=== PATIENT | male | born 1980 | race African-American/Black ===

== ENCOUNTER 2025-11-06 16:00 | Inpatient (IN) | payer OTHER ==
[~2025-11-06] VITALS: Ht 162.6 cm; Wt 75.0 kg
[2025-11-06 17:32] LABS: PLATELET COUNT (AUTO) 257 K/uL (150-450); RED BLOOD CELL COUNT(AUTO) 6.45 MIL/uL (4.50-5.90); RED CELL DISTRIBUTION WIDTH 14.5 % (11.5-14.5); WHITE BLOOD COUNT (AUTO) 8.3 K/uL (4.5-11.0)
[2025-11-06 17:41] LABS: CALCIUM, TOTAL 9.5 mg/dL (8.8-10.5); CREATININE 1.20 mg/dL (0.60-1.30); GLOMERULAR FILTR. RATE CALC > 60 mL/min (>60); GLUCOSE,RANDOM 105 mg/dL (70-110); SODIUM SERUM 137 mmol/L (136-145); UREA NITROGEN, BLOOD 16 mg/dL (7-18)
[2025-11-06 17:43] LABS: RBC MORPHOLOGY COMMENT NORMAL RBC MORPH
[2025-11-06 17:49] LABS: TROPONIN I-HIGH SENSITIVITY 6 ng/L (<76)
[2025-11-06] MEDS: ONDANSETRON HCL 4 MG/2 ML VIAL IVP ONE (18:14)
[2025-11-06] MEDS: KETOROLAC TROMETHAMINE 30 MG/ML VIAL IVP ONE (18:14)
[2025-11-06] MEDS: SODIUM CHLORIDE 0.9% 2,000 ML IV ONE (18:16)
[2025-11-06] MEDS ORDERED: IOHEXOL 350 MG/ML 100 ML VIAL ONE (19:14)
[2025-11-06] MEDS ORDERED: SODIUM CHLORIDE 0.9% 100 ML ONE (19:14)
[2025-11-06] MEDS: RINGERS SOLUTION,LACTATED 1,000 ML IV SCH (19:24)
[2025-11-06 19:27] LABS: APPEARANCE,URINE CLEAR (CLEAR); GLUCOSE, URINE (UA) NEGATIVE (NEGATIVE); LEUKOCYTE ESTERASE ,URINE NEGATIVE (NEGATIVE); NITRATE,URINE NEGATIVE (NEGATIVE); OCCULT BLOOD,URINE NEGATIVE (NEGATIVE); PH,URINE DRUG SCREEN 6.5 (5.0-8.0); SPECIFIC GRAVITIY, URINE 1.037 (1.003-1.030)
[2025-11-06 19:38] LABS: SQUAMOUS EPITHELIAL CELL,UR Rare /LPF (None Seen)
[2025-11-06 19:39] LABS: ALCOHOL, URINE DRUG SCREEN NEGATIVE (NEGATIVE); AMPHET/METH SCREEN,URINE NEGATIVE (NEGATIVE); BARBITURATE SCREEN, URINE NEGATIVE (NEGATIVE); CANNABINOID SCREEN,URINE NEGATIVE (NEGATIVE); COCAINE SCREEN,URINE NEGATIVE (NEGATIVE); METHADONE SCREEN, URINE NEGATIVE (NEGATIVE)
[2025-11-06] MEDS: DOCUSATE SODIUM 100 MG CAPSULE PO SCH (20:06)
[2025-11-06] MEDS: CefTRIAXone 1 GM/DEXTROSE 50 ML IV SCH (23:02)
[2025-11-06] MEDS ORDERED: DAPA10TA PO (23:24)
[2025-11-06] MEDS ORDERED: HYDR-4808 PO (23:24)
[2025-11-06] MEDS ORDERED: GABA-1181 PO (23:24)
[2025-11-06] MEDS ORDERED: ASPI-1450 PO (23:24)
[2025-11-06] MEDS ORDERED: SPIR-37 PO (23:24)
[2025-11-06] MEDS ORDERED: METO-325 PO (23:24)
[2025-11-06] MEDS ORDERED: ONDA2VIA4 IM (23:24)
[2025-11-06] MEDS ORDERED: MELA5TAB40 PO (23:24)
[2025-11-06] MEDS ORDERED: SACU1TAB7 PO (23:24)
[2025-11-06] MEDS ORDERED: BUME1TAB50 PO (23:24)
[2025-11-06] MEDS: HEPARIN SODIUM,PORCINE 5,000 UNITS/ML VIAL SQ SCH (23:52)
[2025-11-07 05:34] LABS: PLATELET COUNT (AUTO) 207 K/uL (150-450); RED BLOOD CELL COUNT(AUTO) 5.33 MIL/uL (4.50-5.90); RED CELL DISTRIBUTION WIDTH 14.5 % (11.5-14.5); WHITE BLOOD COUNT (AUTO) 7.7 K/uL (4.5-11.0)
[2025-11-07 05:39] LABS: CALCIUM, TOTAL 8.1 mg/dL (8.8-10.5); CREATININE 1.06 mg/dL (0.60-1.30); GLOMERULAR FILTR. RATE CALC > 60 mL/min (>60); GLUCOSE,RANDOM 114 mg/dL (70-110); SODIUM SERUM 140 mmol/L (136-145); UREA NITROGEN, BLOOD 15 mg/dL (7-18)
[2025-11-07 14:20] VITALS: BP 155/93; PULSE 64; RESP 20; TEMP 98.1; O2SAT 99
[2025-11-07] MEDS: SACUBITRIL/VALSARTAN 49-51 MG TABLET PO SCH (16:42)
[2025-11-07] MEDS: POTASSIUM CHLORIDE 10% 40 MEQ/30 ML LIQUID UDCUP PO ONE (16:42)
[2025-11-07] MEDS: METOPROLOL SUCCINATE 50 MG ER TABLET PO SCH (16:42)
[2025-11-07] MEDS: ASPIRIN 81 MG CHEWABLE TABLET PO SCH (16:43)
[2025-11-07] MEDS: SPIRONOLACTONE 25 MG TABLET PO SCH (16:44)
[2025-11-07 20:35] VITALS: BP 152/88; PULSE 60; RESP 18; TEMP 98.2; O2SAT 96
[2025-11-07] MEDS: MELATONIN 5 MG TABLET PO SCH (20:41)
[2025-11-07] MEDS: DAPAGLIFLOZIN PROPANEDIOL 5 MG TABLET PO SCH (20:41)
[2025-11-07] MEDS: GABAPENTIN 300 MG CAPSULE PO SCH (20:41)
[2025-11-07] MEDS ORDERED: SODIUM CHLORIDE 0.9% 500 ML IV ONE (23:24)
[2025-11-07] MEDS: SENNOSIDES 8.8 MG/5 ML SYRUP UDCUP PO ONE (23:40)
[2025-11-08 07:00] LABS: PLATELET COUNT (AUTO) 222 K/uL (150-450); RED BLOOD CELL COUNT(AUTO) 6.05 MIL/uL (4.50-5.90); RED CELL DISTRIBUTION WIDTH 14.2 % (11.5-14.5); WHITE BLOOD COUNT (AUTO) 4.4 K/uL (4.5-11.0)
[2025-11-08 07:18] LABS: CREATININE 0.79 mg/dL (0.60-1.30); GLUCOSE,RANDOM 89 mg/dL (70-110); SODIUM SERUM 140 mmol/L (136-145); UREA NITROGEN, BLOOD 11 mg/dL (7-18)
[2025-11-08 07:19] LABS: CALCIUM, TOTAL 8.6 mg/dL (8.8-10.5); GLOMERULAR FILTR. RATE CALC > 60 mL/min (>60)
[2025-11-08] MEDS: FUROSEMIDE 20 MG TABLET PO SCH (08:43)
[2025-11-08 09:13] VITALS: BP 156/93; PULSE 68; RESP 18; TEMP 98.2; O2SAT 100
[2025-11-08] MEDS: ISOSORBIDE MONONITRATE 30 MG ER TABLET PO SCH (11:46)
[2025-11-08] MEDS ORDERED: FURO20TA5 PO (15:59)
[2025-11-08] MEDS ORDERED: AMOX-457 PO (16:00)
[2025-11-08] MEDS ORDERED: AMLO-257 PO (16:01)
[2025-11-08 16:16] VITALS: BP 135/93; PULSE 58; RESP 18; TEMP 98.1; O2SAT 97
[2025-11-08] MEDS: ACETAMINOPHEN 500 MG TABLET PO ONE ×2 (16:34→21:51)
[2025-11-08] MEDS: ONDANSETRON HCL 4 MG/2 ML VIAL IVP PRN (17:59)
[2025-11-08 20:09] VITALS: BP 125/88; PULSE 58; RESP 18; TEMP 98.1; O2SAT 98
[2025-11-08] MEDS: SODIUM CHLORIDE 0.9% 500 ML IV ONE (21:51)
[2025-11-08] MEDS ORDERED: SODIUM CHLORIDE 0.9% 250 ML IV ONE (22:52)
[2025-11-09 04:54] VITALS: BP 136/88; PULSE 61; RESP 18; TEMP 97.7; O2SAT 96
[2025-11-09 08:27] VITALS: BP 140/88; PULSE 55; RESP 19; TEMP 97.5; O2SAT 95
[2025-11-09 20:00] VITALS: BP 159/101; PULSE 53; RESP 20; TEMP 98.1; O2SAT 97
== END 2025-11-10 00:36 | DRG 391 ==
LOC: EMS 16:00 → EDH 18:09 → 6S 11-07 03:03 → EDH 11-07 03:25 → 4S 11-07 14:05
PROVIDERS: ADMIT Internal Medicine; ATTEND Internal Medicine
DX: K52.9 Noninfective gastroenteritis and colitis, unspecified (principal); N17.0 Acute kidney failure with tubular necrosis; I50.22 Chronic systolic (congestive) heart failure; I11.0 Hypertensive heart disease with heart failure; G40.909 Epilepsy, unspecified, not intractable, without status epilepticus; E86.0 Dehydration; K21.9 Gastro-esophageal reflux disease without esophagitis; Z87.891 Personal history of nicotine dependence
CPT/HCPCS: 71045; 74177; 76700; 80048; 80307; 81001; 83690; 83735; 84484; 85025; 93005; 99285; G0378; J0696; J1644; J1885; J2405; J7030; J7040; J7050; J7120; 36415-L1; 36415-TC